=== PATIENT | male | born 1995 | race Caucasian/White ===

== ENCOUNTER 2018-04-22 14:57 | Emergency (ER) | payer SELFPAY ==
[2018-04-22 14:58] VITALS: BP 149/83; PULSE 77; RESP 16; TEMP 36.6; O2SAT 98; BMI 33.2
[2018-04-22] MEDS: Carbamide Peroxide 15 ML Bottle 5 DRP OTIC (16:26)
--- NOTE | 2018-04-22 17:28 | ED.DCSUM_ITS ---
- ER Visit Summary Date of Service: 04/22/18 Chief Complaint: [Bilateral ear pain] History of Present Illness: The patient is a 22 M [presents the emergency department complaint of pain in both ears that started today. Patient states that the right ear is worse than the left. Patient complains of pressure down into his jaw on the right. Patient states that several weeks ago he was seen at a emergency department in [place] where he was diagnosed with a perforated tympanic membrane on the left and patient was placed on amoxicillin at that time. Patient states that he felt like he did well but started having pain again today. He has had no fevers or cough. He denies any sore throat. He denies any trauma.] Physical Examination: [HEENT-PERRLA, EOMI. Cranial nerves II through XII grossly intact. Left tympanic membrane appears to have a perforation in the inferior pole without any active bleeding or signs of infection. I am unable to visualize the right TM due to a cerumen impaction in the right ear canal.. Mucous membranes moist. No adenopathy. Cardiovascular-regular rate and rhythm without murmur or ectopy Lungs-clear to auscultation, chest wall stable without crepitus or subcu emphysema Abdomen-normoactive bowel sounds, soft, nontender, no rebound or rigidity, no peritoneal signs. Extremities-intact ?4, normal range of motion, normal pulses, atraumatic] Test Results: [None indicated] Emergency Department Course and Treatment: [Patient had Cerumenex applied to the right ear canal and the ear was irrigated. Patient had small results then using a ear curette I was able to remove the entire impaction without difficulty. Patient did feel improved. I am now able to visualize the tympanic membrane it does have some erythema around the periphery with some decreased ability to visualize landmarks.] Treatment Plan: [Patient will be started on Zithromax] Disposition: [Discharged home stable condition. Patient will be referred to ear nose and throat] Impression: [Right cerumen impaction Right otitis media Left tympanic membrane perforation-old] This note was generated with [employer] dictation software. It may contain incorrect words, spelling, and punctuation that were not noted in review of the chart prior to signing ED Disposition - Plan for ED Patient: Chief Complaint: Ear Problem Referrals: Care Physician,No Primary [Primary Care Provider] -
--- NOTE | 2018-04-22 17:29 | ED.DEP ---
ED Disposition - Plan for ED Patient: Chief Complaint: Ear Problem Instructions: ED Cerumen Impaction Treated, ED Otitis Media Acute Adult Prescriptions: Azithromycin [Zithromax] 250 mg PO DAILY #4 tab Referrals: Care Physician,No Primary [Primary Care Provider] - Scott Philippe MD [STAFF PHYSICIAN] - 5-7 Days
[2018-04-22] MEDS: Azithromycin 250 MG Tablet 500 MG PO (17:32)
== END 2018-04-22 17:36 | disposition home or self-care (01) ==
PROVIDERS: Emergency Provider Emergency Medicine
DX: H61.21 Impacted cerumen, right ear (principal); H66.91 Otitis media, unspecified, right ear; Z86.69 Personal history of other diseases of the nervous system and sense organs
CPT/HCPCS: 69210; 99283